=== PATIENT | female | born 1960 | race Asian ===

== ENCOUNTER → 2016-12-05 | Outpatient (CLI) | payer OTHER ==
--- NOTE | 2016-12-05 10:47 | US ---
Ultrasound of the Abdomen Limited History: Right upper quadrant Abdominal pain. R 10.13 Comparison: None. Findings: Gallbladder: No shadowing calculi, wall thickening, or pericholecystic fluid. Common bile duct is 5 m m in diameter which is normal. Liver: Homogeneous in echogenicity without definite focal solid lesions and measures 14 cm in length. Main portal vein is patent. There are 3 simple cysts noted in the liver with 2 in the left lobe maty uring 3.1 x 2.9 x 2.4 cm and 1.4 x 1.4 x 1.2 cm. One cyst in the right lobe superior aspect measuring 2.7 x 2.6 x 3.1 cm. No definite solid hepatic lesions. Renal: Right kidney measures 10.4 x 3.5 x 4.7 cm without hydronephrosis. Pancreas: Homogeneous without peripancreatic fluid. Aorta: Visualized upper abdominal aorta demonstrates no aneurysm. Impression: 1. No cholelithiasis or biliary ductal dilation. 2. Multiple hepatic cysts without hepatomegaly or solid hepatic lesions. 3. No peripancreatic fluid. Findings and recommendations discussed with Dr. Ramesh Ornelas at 1040 hour, today.
== END ==
LOC: CIMAGING 09:35
PROVIDERS: ATTEND Internal Medicine Gastroenterology
DX: K76.89 Other specified diseases of liver (principal)
CPT/HCPCS: 76705-PO

== ENCOUNTER 2016-12-07 06:11 | Day surgery (SDC) | payer OTHER ==
[~2016-12-07 06:11] MED LIST: LIDOCAINE 1% 5 ML SDV ONE
[2016-12-07] MEDS ORDERED: MIDAZOLAM 2 MG/2 ML VIAL ONE (07:12)
[2016-12-07] MEDS ORDERED: PROPOFOL/EMULSION 500 MG/50 ML BOTTLE IV ONE (07:20)
[2016-12-07] MEDS ORDERED: ONDANSETRON 4 MG/2 ML VIAL ONE ×2 (08:24→09:13)
--- NOTE | 2016-12-07 11:31 | GPN ---
[f rep st] PROCEDURE NOTE DATE OF PROCEDURE: 12/07/2016 PROCEDURE: Esophagogastroduodenoscopy with biopsy. INDICATION: The patient is a 56-year-old female who presents with complaints of nausea, as well as midepigastric abdominal pain. She presents for further evaluation. CONSENT: Risks, benefits, and alternatives of the procedure were discussed in great detail with the patient. Risk of infection, bleeding, perforation, and sedation were discussed. All questions were answered. Informed consent was obtained. MEDICATIONS: Propofol. Please see Anesthesiology received for details. ESTIMATED BLOOD LOSS: Insignificant. ESOPHAGOGASTROSCOPY EXAMINATION: The Olympus upper endoscope was introduced through the mouth and advanced to the esophagus. The proximal and midesophagus were normal in appearance. The patient had an irregular Z line and biopsies were taken. The stomach was entered and closely examined, including retroflexed views of the angularis, cardia, and fundus. The patient was noted to have a small hiatal hernia. The mucosa in the antrum and body was erythematous in a patchy distribution. Biopsies were taken. Several sessile diminutive polyps were noted along the greater curvature and biopsies were taken. The duodenal bulb and second portion of the duodenum were normal in appearance. IMPRESSION: 1. Irregular Z line, status post biopsy. 2. Gastritis, status post biopsy. 3. Gastric polyp, status post biopsy. 4. No obvious cause of abdominal pain seen. No ulcer disease noted. Infectious versus functional symptoms? Will await biopsy results. RECOMMENDATIONS: 1. Follow up on biopsies. 2. Continue PPI therapy. 3. Continue antispasmodic. 4. Follow up in office in 6 weeks. 5. Proceed with screening colonoscopy. /[id number]/MODL MTDD
--- NOTE | 2016-12-07 12:06 | GPN ---
[f rep st] PROCEDURE NOTE DATE OF PROCEDURE: 12/07/2016 PROCEDURE: Colonoscopy. INDICATION: The patient is a 56-year-old female who presents for screening colonoscopy. CONSENT: Risks, benefits, and alternatives of the procedure were discussed in great detail with the patient. Risks of infection, bleeding, perforation, and sedation were discussed. All questions were answered. Informed consent was obtained. MEDICATIONS: Propofol. Please see Anesthesiology record for details. ESTIMATED BLOOD LOSS: Insignificant. COLONOSCOPIC EVALUATION: A rectal examination was performed and no palpable masses were felt. The scope was introduced into the rectum and advanced to the cecum and the ileocecal valve and appendiceal orifice was seen. The quality of the prep was good. The mucosa was carefully examined on both insertion and withdrawal of the scope. No masses or polyps were noted. IMPRESSION: Normal colonoscopy. RECOMMENDATIONS: Screening colonoscopy in 10 years. /[id number]/MODL MTDD
== END 2016-12-07 09:35 | disposition home or self-care (01) ==
LOC: FSGY 06:11
PROVIDERS: ATTEND Internal Medicine Gastroenterology
PROC: 0DB58ZX Excision of Esophagus, Via Natural or Artificial Opening Endoscopic, Diagnostic (ICD-10-PCS; principal; 2016-12-07 07:15)
PROC: 0DB68ZX Excision of Stomach, Via Natural or Artificial Opening Endoscopic, Diagnostic (ICD-10-PCS; principal; 2016-12-07 07:15)
PROC: 0DJD8ZZ Inspection of Lower Intestinal Tract, Via Natural or Artificial Opening Endoscopic (ICD-10-PCS; principal; 2016-12-07 07:15)
DX: K20.0 Eosinophilic esophagitis (principal); K29.90 Gastroduodenitis, unspecified, without bleeding; K31.7 Polyp of stomach and duodenum; K29.70 Gastritis, unspecified, without bleeding; E89.0 Postprocedural hypothyroidism; I10 Essential (primary) hypertension; Z85.850 Personal history of malignant neoplasm of thyroid
CPT/HCPCS: J2250; J2405; J2704